=== PATIENT | female | born 1955 | race African-American/Black ===

== ENCOUNTER 2021-03-13 11:54 | Emergency (ER) | payer MEDICARE, MEDICAID, SELFPAY ==
--- NOTE | ~2021-03-13 | XR_ITS ---
EXAMINATION: XR hand RT min 3V INDICATION: Right hand pain TECHNIQUE: Three views of the right hand are obtained. COMPARISON: None available FINDINGS: There is no fracture, dislocation, or subluxation. The bones, soft tissues, and joint space s are normal. IMPRESSION: 1. No acute osseous abnormality. Reviewed, dictated and finalized at location A.
[2021-03-13 11:57] VITALS: BP 97/65; RESP 16; TEMP 35.7; O2SAT 96
[2021-03-13 12:09] VITALS: PULSE 80; RESP 20; O2SAT 96
--- NOTE | 2021-03-13 12:34 | ED.UPPEXIN ---
HPI - Extremity Injury (Upper) General Chief Complaint: Extremity Injury, Upper Stated Complaint: SMASHED FINGERS Time Seen by Provider: 03/13/21 12:13 Source: patient Mode of arrival: ambulatory Limitations: no limitations History of Present Illness HPI narrative: This is a 66-year-old female that presents emergency department for right hand injury sustained just prior to arrival. Reports she was closing a manual garage door and accidentally got her fingers caught in it. Reports an injury to the right third and fourth fingers. Reports pain to the area. Denies decreased range of motion or numbness. Related Data Allergies Allergy/AdvReac Type Severity Reaction Status Date / Time No Known Allergies Allergy Verified 03/13/21 12:00 Review of Systems Review of Systems: CONSTITUTIONAL: Denies fever MUSCULOSKELETAL: Reports joint pain, and myalgia. NEUROLOGIC: Denies numbness, or weakness. All systems reviewed & are unremarkable except as noted in HPI and below PMFSH Past Medical History Medical History (Updated 03/13/21 @ 13:47 by Laura Padron PA-C) No active medical problems Social History Social History (Updated 03/13/21 @ 12:35 by Laura Padron PA-C) Smoking status: Current every day smoker Exam Narrative: GENERAL: Well-appearing, well-nourished, and in no acute distress. HEAD: Normocephalic, atraumatic. EYES: EOMI. EXTREMITIES: Normal range of motion. No edema or obvious deformity. Normal radial pulse. Normal sensation SKIN: Warm, dry, no rash. NEURO: No focal deficits. Alert and oriented x3. PSYCH: Normal mood and affect Course Vital Signs Vital signs: Vital Signs Temperature 96.3 F L 03/13/21 11:57 Respiratory Rate 16 03/13/21 11:57 Blood Pressure 97/65 L 03/13/21 11:57 Pulse Oximetry 96 03/13/21 11:57 Temperature 96.3 F L 03/13/21 11:57 Pulse Rate 80 03/13/21 12:09 Respiratory Rate 20 03/13/21 12:09 Blood Pressure 97/65 L 03/13/21 11:57 Pulse Oximetry 96 03/13/21 12:09 MDM - Extremity Injury (Upper) MDM Narrative Medical decision making narrative: Patient presents to the emergency department for right hand injury sustained just prior to arrival. Accidentally closed her hand in a manual garage door. Right hand x-rays without acute osseous abnormalities. Patient eloped after being seen by a provider before given imaging results or discharge paperwork Imaging Data Radiologist's impression: ITS Impressions Hand X-Ray 03/13/21 12:25 IMPRESSION: 1. No acute osseous abnormality. Critical Care Time Critical Care Time Critical Care Time: No Discharge Plan Discharge Clinical Impression: Crush injury of hand Qualifiers: Encounter type: initial encounter Laterality: right Qualified Code(s): S67.21XA - Crushing injury of right hand, initial encounter Patient Disposition: Elopement After Seen by Prov Condition: Stable Follow-up/Referrals: PHYSICIAN NOT ON STAFF,NONSTAFF [Primary Care Provider] -
[2021-03-13] MEDS: IBUPROFEN 600 MG TABLET PO (12:39)
--- NOTE | 2021-03-13 13:30 | PC.NURSE ---
pt seen by intake nurse walking out of er with ice pack in place.
== END 2021-03-13 13:50 | disposition left against medical advice (07) ==
PROVIDERS: Emergency Provider Emergency Medicine
DX: S67.21XA Crushing injury of right hand, initial encounter (principal); F17.210 Nicotine dependence, cigarettes, uncomplicated; W23.0XXA Caught, crushed, jammed, or pinched between moving objects, initial encounter
CPT/HCPCS: 73130; 99283; A9270